=== PATIENT | female | born 1980 | race Caucasian/White ===

== ENCOUNTER 2018-07-07 15:40 | Day surgery (SDC) | payer MEDICAID ==
[~2018-07-07] VITALS: Ht 157.5 cm; Wt 76.2 kg
[2018-07-07] MEDS ORDERED: PRENAVITE1 TAB PO (17:00)
[2018-07-07 17:10] VITALS: BP 108/57; Ht 157.5 cm; Wt 76.2 kg
[2018-07-07 17:14] LABS: HEMOGLOBIN 11.9 g/dL (12-16); MCH 28.7 pg (26.0-34.0); MCHC 33.1 g/dL (31.0-37.0); MEAN PLATELET VOLUME 10.1 fL (7.4-10.4); RBC 4.14 10x6/uL (4.00-5.40); RDW 13.2 % (11.5-14.5); WBC 11.5 10x3/uL (4.8-10.8)
--- NOTE | 2018-07-07 19:28 | NUR ---
1914 FL DIET SERVED
--- NOTE | 2018-07-07 20:30 | NUR ---
2015 DC INSTS GIVEN RX'S GIVEN RELEASED IN WC WITH SPOUSE.
--- NOTE | 2018-07-08 13:19 | OP ---
PATIENT NAME: LOU INIGUEZ MEDICAL RECORD: [id number] :78 LOCATION:D.[facility] ADMISSION DATE: SURGEON: DEBBIE RODRIGUEZ MD DATE OF OPERATION: 07/07/2018 PREOPERATIVE DIAGNOSIS: Suspected ectopic . POSTOPERATIVE DIAGNOSES: 1. Endometriosis. 2. Torsed cyst of Morgagni. 3. Likely missed . PROCEDURES: 1. Diagnostic laparoscopy. 2. Removal of the necrotic cyst of Morgagni. 3. Fulguration of endometriosis of the peritoneum. 4. Dilation with curettage. SURGEON: Debbie Rodriguez MD PARK MANAGER: Shukri Geiger ANESTHESIOLOGIST: Dr. Scott. ANESTHESIA: General. FINDINGS: Pelvis has active endometriosis on the posterior aspect of the uterus in the lower segments. There is powder-burn lesions on the right uterosacral ligament and left sidewall over the ureter. At the time of dilation and curettage scant tissue returned. SPECIMENS: Endometrial curettings likely products of conception. SPECIMEN DISPOSITION: Pathology. ESTIMATED BLOOD LOSS: Minimal. FLUIDS: 1400 cc lactated Ringer's. URINE OUTPUT: Quantity sufficient void prior to the procedure. COMPLICATIONS: None. DRAINS: None. 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 Quantitative hCGs initially had dropped; however, after 3 consecutive draws at 48-hour intervals the levels had plateaued. The patient has had intermittent pain and bleeding. Suspected ectopic was diagnosed. The patient was taken to the operating room for diagnostic laparoscopy and indicated procedures. DESCRIPTION OF PROCEDURE: After informed consent was assured, the patient was taken to the operating room where anesthetic was obtained without difficulty. The patient was prepped and draped in the usual sterile fashion. Attention was OPERATIVE REPORT [id number] LOU INIGUEZ directed to the abdomen where a trocar was inserted. Pneumoperitoneum was developed. Accessory ports were placed in the left lower quadrant and in the midline. Through the midline port, a blunt probe was inserted and anterior and posterior aspects of both tubes and uterus are inspected. The ovaries were also inspected. Powder burn lesions were seen on the posterior aspect of the uterus and on the peritoneum. A necrotic cyst of Morgagni is visualized on the right fimbria and this is removed with Harmonic scalpel from the midline and then passed off the field to the attendant. Now, using monopolar setting at 20 hutchinson, the powder burn lesions that are over the uterus were fulgurated. The left peritoneal powder burn lesion is not addressed. The pneumoperitoneum was now released, trocars were removed and the skin closed. Dermabond was placed over all sites. The legs are positioned for the vaginal portion of this case. The cervix was grasped with a single tooth tenaculum and dilated. What appears to be the products of conceptions returned at the time of the curettage. A good cry was obtained throughout. Sponge, lap, needle counts were correct times 2 as the D&C is completed. All specimens to pathology. The patient tolerated the procedure well. TRANSINT:[id number] Voice Confirmation ID: [id number] DOCUMENT ID: [id number] DEBBIE RODRIGUEZ MD at 1319 CC: [id number] DICTATION DATE: 07/07/181818 INFORMATICS COORDINATOR: 07/08/18 0149 [facility] 07/07/18 [id number] [place] [address]
== END 2018-07-07 20:15 | disposition home or self-care (01) ==
LOC: D.OPS 15:40
PROVIDERS: Anesthesiology
DX: N80.3 Endometriosis of pelvic peritoneum (principal); N80.0 Endometriosis of uterus; N80.8 Other endometriosis; Q50.5 Embryonic cyst of broad ligament; Z01.812 Encounter for preprocedural laboratory examination

== ENCOUNTER → 2019-01-12 16:40 | Outpatient (CLI) | payer MEDICAID ==
[2018-07-07 17:10] VITALS: BMI 30.8
[~2019-01-12 16:40] MED LIST: PRENAVITE1 TAB PO
[2019-01-12 17:59] LABS: APPEARANCE CLEAR (CLEAR); BILIRUBIN NEGATIVE (NEGATIVE); COLOR YELLOW (YELLOW); GLUCOSE NEGATIVE (NEGATIVE); KETONE NEGATIVE (NEGATIVE); NITRITE NEGATIVE (NEGATIVE); PROTEIN NEGATIVE (NEGATIVE); SPECIFIC GRAVITY 1.015 (1.005-1.020); UROBILINOGEN NORMAL (NORMAL)
== END | disposition home or self-care (01) ==
LOC: D.LDO 16:40
PROVIDERS: ATTEND Obstetrics & Gynecology
DX: O26.899 Other specified pregnancy related conditions, unspecified trimester (principal); Z3A.00 Weeks of gestation of pregnancy not specified

== ENCOUNTER → 2019-03-02 13:15 | Outpatient (CLI) | payer MEDICAID ==
[2018-07-07 17:10] VITALS: BMI 30.8
[~2019-03-02 13:15] MED LIST changes: +PEPCID AC20 MG PO; +PERCOCET 5-3251 TAB PO
[2019-03-02 14:23] LABS: APPEARANCE CLEAR (CLEAR); BILIRUBIN NEGATIVE (NEGATIVE); COLOR YELLOW (YELLOW); GLUCOSE 250 mg/dL (NEGATIVE); KETONE SMALL mg/dL (NEGATIVE); NITRITE NEGATIVE (NEGATIVE); PROTEIN NEGATIVE (NEGATIVE); SPECIFIC GRAVITY 1.015 (1.005-1.020); UROBILINOGEN NORMAL (NORMAL)
== END | disposition home or self-care (01) ==
LOC: D.LDO 13:15
PROVIDERS: ATTEND Obstetrics & Gynecology
DX: O26.90 Pregnancy related conditions, unspecified, unspecified trimester (principal); Z3A.00 Weeks of gestation of pregnancy not specified

== ENCOUNTER → 2019-03-31 19:40 | Outpatient (CLI) | payer BC ==
[2018-07-07 17:10] VITALS: BMI 30.8
[2019-03-31 20:02] LABS: APPEARANCE CLEAR (CLEAR); BILIRUBIN NEGATIVE (NEGATIVE); COLOR YELLOW (YELLOW); GLUCOSE 250 mg/dL (NEGATIVE); KETONE NEGATIVE (NEGATIVE); NITRITE NEGATIVE (NEGATIVE); PROTEIN TRACE mg/dL (NEGATIVE); UROBILINOGEN NORMAL (NORMAL)
== END | disposition home or self-care (01) ==
LOC: D.LDO 19:40
PROVIDERS: ATTEND Obstetrics & Gynecology
DX: O26.93 Pregnancy related conditions, unspecified, third trimester (principal); Z3A.35 35 weeks gestation of pregnancy; M54.5 Low back pain; R10.30 Lower abdominal pain, unspecified

== ENCOUNTER 2019-04-20 08:02 | Inpatient (IN) | payer BC, MEDICAID ==
[~2019-04-20] VITALS: Ht 157.5 cm; Wt 91.4 kg
--- NOTE | ~2019-04-20 | OP ---
PATIENT NAME: LOU INIGUEZ MEDICAL RECORD: [id number] :78 LOCATION:[facility] ADMISSION DATE:04/20/19 SURGEON: IRVIN MARCELINO DO DATE OF OPERATION: 04/20/2019 PREOPERATIVE DIAGNOSIS: Previous section, in labor. POSTOPERATIVE DIAGNOSIS: Previous section, in labor. PRIMARY SURGEON: Irvin Marcelino DO DEMURRAGE WORKER SURGEON: Not applicable. ANESTHESIA: RAZ Back CRNA; Diego Echeverria CRNA. PROCEDURE: Repeat low transverse section via Pfannenstiel incision. FINDINGS: Male infant, weight 7 pounds 14.9 ounces, 3600 grams, delivered at 1708 hours. Apgars 9 and 9. Small area, possible focal accreta on the posterior wall of the uterus oversewn with good hemostasis and the uterus with good tone. Normal appearing bilateral fallopian tubes and ovaries. SPECIMENS: Placenta and cord. ESTIMATED BLOOD LOSS: 1000 cc. IV FLUIDS: 2 liters. URINE OUTPUT: 75 cc clear urine. COMPLICATIONS: Possible 1 cm area of focal placenta accreta oversewn with good hemostasis and good uterine tone. PROCEDURE IN DETAIL: The risks, benefits, alternatives and indication of the procedure were discussed with the patient. She voiced understanding of the procedure and signed the consent. She was taken to the OR where spinal anesthesia was administered and found to be adequate. She was placed in the dorsal supine position with leftward tilt. She was prepped and draped in the normal sterile fashion. A Pfannenstiel skin incision was made with a scalpel and carried down to the underlying layer of the fascia with the Bovie. The fascia was incised with the midline and extended laterally. The inferior aspect of the fascial incision was grasped with Isidra clamps and the rectus muscle was dissected off sharply. Attention was then turned to the superior aspect of the fascial incision. The rectus muscle was dissected off in a similar fashion. The rectus muscle was grasped with 2 Allises and down to the level of peritoneum with a scalpel. The peritoneum was identified and noted to be free of adherent bowel and entered bluntly. Intraabdominal adhesions were noted that were taken down with a combination of blunt and sharp dissection. A bladder flap was created and the uterus was incised in a transverse fashion of the lower uterine segment. The incision was extended with cephalad caudad traction. The 's head was brought to the incision and the delivered without difficulty. Mouth and nose were suctioned. Cord was clamped and cut and the was handed off to awaiting pediatricians. The placenta was manually removed. There was a small area of possible focal placenta accreta that was then oversewn with 0 Vicryl with good hemostasis noted at the hysterotomy. A OPERATIVE REPORT [id number] LOU INIGUEZ moist laparotomy sponge was used to assure complete removal of placental membranes. The hysterotomy was then closed with 0 Vicryl in a running locked fashion with good hemostasis noted. The uterus, tubes and ovaries were noted to be normal and returned back to the abdominal cavity. A moist laparotomy sponge was used to assure complete removal of blood clots and fluid from the abdominal cavity. The hysterotomy was reinspected and noted to be hemostatic. The uterus was noted to have good uterine tone when placed back into the abdomen. The rectus muscle was closed with 2-0 Monocryl in a running fashion with good hemostasis. The fascial incision was closed with 0 Vicryl in a running fashion with good hemostasis. The subcutaneous fat was closed with 2-0 plain gut in a running fashion with good hemostasis. The skin was closed in a subcuticular fashion with 3-0 Monocryl and Dermabond covering. All needle, lap, sponge, and instrument counts were correct times 2. The patient tolerated the procedure well and she was taken to the recovery room in stable condition. TRANSINT:[id number] Voice Confirmation ID: [id number] DOCUMENT ID: [id number] IRVIN MARCELINO DO CC: [id number] DICTATION DATE: 04/24/191207 STERILE PROCESSING TECH: 04/24/19 1359 [facility] IN 04/23/19 [id number] [place] [address]
[~2019-04-20 08:02] MED LIST changes: -PEPCID AC20 MG PO; -PERCOCET 5-3251 TAB PO
[2019-04-20] MEDS ORDERED: PEPCID AC20 MG PO (09:33)
[2019-04-20 09:41] LABS: BASOPHILS 0.2 % (0-2); EOSINOPHILS 0.5 % (0-7); HEMOGLOBIN 10.5 g/dL (12-16); IMMATURE GRANULOCYTES 0.2 % (0-5); LYMPHOCYTES 23.6 % (15-50); MCH 29.1 pg (26.0-34.0); MCHC 32.8 g/dL (31.0-37.0); MCV 88.6 fL (80.0-100.0); MEAN PLATELET VOLUME 10.2 fL (7.4-10.4); MONOCYTES 7.3 % (2-11); NEUTROPHILS 68.2 % (40-80); PLATELET COUNT 280 10x3/uL (130-400); RBC 3.61 10x6/uL (4.00-5.40); RDW 13.8 % (11.5-14.5); WBC 10.8 10x3/uL (4.8-10.8)
[2019-04-20 09:43] LABS: ALBUMIN 2.2 g/dL (3.4-5.0); ALKALINE PHOSPHATASE 205 U/L (46-116); ALT (SGPT) 12 U/L (10-68); AMYLASE - SERUM 50 U/L (25-115); BILIRUBIN - TOTAL 0.24 mg/dL (0.2-1.3); CALC OSMOLALITY 274 mosm/kg (275-300); CALCIUM 9.3 mg/dL (8.5-10.1); CHLORIDE - SERUM 105 mmol/L (98-107); CREATININE - SERUM 0.7 mg/dL (0.6-1.3); GLUCOSE 100 mg/dL (74-106); LIPASE 166 U/L (73-393); POTASSIUM - SERUM 3.8 mmol/L (3.5-5.1); PROTEIN - SERUM 6.3 g/dL (6.4-8.2); SODIUM 139 mmol/L (136-145); UREA NITROGEN 3 mg/dL (7-18); eGFR NON AFRICAN AMERICAN > 90 mL/min (90-120)
[2019-04-20 10:02] LABS: APPEARANCE HAZY (CLEAR); BILIRUBIN NEGATIVE (NEGATIVE); COLOR YELLOW (YELLOW); GLUCOSE NEGATIVE (NEGATIVE); KETONE MODERATE mg/dL (NEGATIVE); NITRITE NEGATIVE (NEGATIVE); PROTEIN TRACE mg/dL (NEGATIVE); SPECIFIC GRAVITY 1.025 (1.005-1.020); UROBILINOGEN NORMAL (NORMAL); WHITE CELLS - URINE 0-5 /hpf (NEGATIVE)
[2019-04-20 10:03] LABS: BACTERIA MODERATE /hpf (NEGATIVE); EPITHELIAL CELLS OCC /hpf (0-5); GRANULAR CAST RARE /lpf (NONE SEEN); MUCUS <1+ /lpf (NONE SEEN)
[2019-04-20 11:25] LABS: HIV 1 & 2- RAPID SCREEN NEGATIVE (NEGATIVE)
[2019-04-20 12:26] VITALS: BP 120/61; Ht 157.5 cm; Wt 91.4 kg
--- NOTE | 2019-04-20 17:23 | NUR ---
1708 VIABLE BABY BOY DELIVERED CORD BLOOD AND GASES DONE AND SENT OUT, DORIS
--- NOTE | 2019-04-20 18:50 | NUR ---
THIS RN AND Radha BURNSRN TO RECOVERY ROOM. FUNDAL CHECK DONE. FUNDUS FIRM,U/U MIDLINE. SMALL LOCHIA NOTED. NO BLOOD CLOTS EXPRESSED W/MASSAGE. PT ROLLED FROM SIDE TO SIDE AND CLEAN CHUX AND PADS PLACED. PT TRANSFERED TO RM [id number].
[2019-04-20 18:57] VITALS: BP 111/58
--- NOTE | 2019-04-20 19:00 | NUR ---
REC'D PT BACK FROM RECOVERY POST REPEAT . PT AA&O X4. PAIN ASSESSED. PT REPORTS PAIN 11/25. REPORT REC'D FROM RECOVERY NURSE, PIYUSH BOYER THAT PT RECEIVED MORPHINE AND TORADOL IN RECOVERY. SEE EMAR FOR DOCUMENTATION. PT HAS A PIV TO RT HAND W/NS/20 UNITS PITOCIN INFUSING AT SLOW RATE OFF THE PUMP.
--- NOTE | 2019-04-20 19:05 | NUR ---
PT CONTINUES TO C/O PAIN RATED 7/10 AT THIS TIME, AFTER RECEIVING 4MG MORPHINE IN RECOVERY WELL ALREADY RECEIVING TORADOL. DR MARCELINO ON UNIT, NOTIFIED OF PT PAIN COMPLAINTS AND MEDS RECEIVED. ORDER RECEIVED TO ADMIN ANOTHER 2MG MORPHINE IVP x1 NOW.
[2019-04-20 19:15] LABS: BASOPHILS 0.1 % (0-2); EOSINOPHILS 0.1 % (0-7); HEMATOCRIT 29.2 % (36.0-48.0); HEMOGLOBIN 9.2 g/dL (12-16); IMMATURE GRANULOCYTES 0.6 % (0-5); LYMPHOCYTES 22.2 % (15-50); MCH 28.2 pg (26.0-34.0); MCHC 31.5 g/dL (31.0-37.0); MCV 89.6 fL (80.0-100.0); MONOCYTES 6.6 % (2-11); NEUTROPHILS 70.4 % (40-80); PLATELET COUNT 256 10x3/uL (130-400); RBC 3.26 10x6/uL (4.00-5.40); RDW 13.9 % (11.5-14.5)
--- NOTE | 2019-04-20 19:15 | NUR ---
FUNDUS FIRM,U/U, MIDLINE. SCANT TO SMALL LOCHIA NOTED.
--- NOTE | 2019-04-20 19:30 | NUR ---
PT AA&O X 4. REPORTS PAIN IS 6/10. FUNDUS FIRM,U/U,MIDLINE. SCANT TO SMALL LOCHIA NOTED. [facility] MUG FILLED WITH ICE WATER. SERVED AND PT INSTRUCTED TO INCREASE FLUID INTAKE.
--- NOTE | 2019-04-20 19:30 | NUR ---
FUNDUS FIRM,U/U,MIDLINE. SMALL LOCHIA NOTED. NO PAD CHANGE NEEDED. PT REPORTS PAIN IS STILL 7/10. ICE CAP TO ABD.
[2019-04-20 19:36] VITALS: BP 108/59
--- NOTE | 2019-04-20 19:45 | NUR ---
PT REPORTS PAIN 5/10. FUNDUS FIRM,U/U,MIDLINE. SMALL LOCHIA NOTED. CLEAN PERIPAD PLACED. I.S. PROVIDED W/INSTRUCTIONS. PT PERFORMS I.S. X 3 W/MODERATE ABILITY.
--- NOTE | 2019-04-20 20:00 | NUR ---
PT W/ UP IN ARM. PAIN ASSESED. PT REPORTS PAIN REMAINS 5/10. NO FURTHER INTERVENTIONS REQUESTED AT THIS TIME. FUNDUS FIRM,U/U, SMALL LOCHIA NOTED. APPROX 125ML URINE NOTED AND DUMPED TO BAG. PT T/C/D.
--- NOTE | 2019-04-20 21:00 | NUR ---
PT AA&O X4. PAIN ASSESSED. PT CONTINUES TO RATE PAIN 6-7/10. EMAR REVIEWED. PT INFORMED THAT SHE MAY HAVE NEXT DOSE OF MORPHINE AT 0. PT AGREEABLE TO WAITNING. NO FURTHER PAIN INTERVENTIONS REQUESTED AT THIS TIME. FUNDUS FIRM,U/U, MIDLINE. PT REPOSITIONED SIDE TO SIDE W/MODERATE ASSIST AND CHUX/PAD CHANGED. CLEAN PAD PLACED. APPROX 125ML URINE NOTED IN UROMETER AND DUMPED. SCD WRAPS REMAIN CONNECTED TO PUMP. PUMP REMAINS ON AND FUNCTIONING.
--- NOTE | 2019-04-20 21:30 | NUR ---
THIS RN TO BEDSIDE. 4MG MORPHINE ADMINISTERED SIVP. PT CURRENTLY AA&O X 4. UP IN PT'S ARMS. FAMILY AT BEDSIDE. BED LOW, SIDE RAILS UP X 2.
--- NOTE | 2019-04-20 22:46 | NUR ---
NEW BAG OF PITOCIN UP AT 125 ML/HR. SITE CLEAR AND PATIENT. NO NEEDS VERBALIZED AT THIS TIME. Laurence BELL RN
[2019-04-20 23:17] LABS: BASOPHILS 0.1 % (0-2); EOSINOPHILS 0 % (0-7); HEMATOCRIT 28.6 % (36.0-48.0); HEMOGLOBIN 9.1 g/dL (12-16); IMMATURE GRANULOCYTES 0.5 % (0-5); MCH 28.3 pg (26.0-34.0); MCHC 31.8 g/dL (31.0-37.0); MCV 89.1 fL (80.0-100.0); MEAN PLATELET VOLUME 9.7 fL (7.4-10.4); MONOCYTES 7.6 % (2-11); NEUTROPHILS 78.8 % (40-80); PLATELET COUNT 250 10x3/uL (130-400); RBC 3.21 10x6/uL (4.00-5.40); RDW 13.7 % (11.5-14.5)
[2019-04-20 23:22] LABS: WBC 17.8 10x3/uL (4.8-10.8)
--- NOTE | 2019-04-20 23:30 | NUR ---
ROUNDS MADE FOR I&O,LOCHIA ASSESSMENT AND PAIN. PT AA&O X 4. SMILING AND REPORTS HER PAIN LEVEL WAS A 4/10 UNTIL SHE COUGHS.FUNDAL CHECK DONE. FUNDUS FIRM, DEEP, MIDLINE. SMALL REUBRA LOCHIA NOTED. PERICARE DONE AND CLEAN PAD PLACED. APPROX 350ML URINE NOTED IN UROMETER AND DUMPED. SCD WRAPS REMAIN IN PLACE,CONNECTED TO PUMP. PUMP IS ON AND FUNCTIONING. PT DENIES NEEDS AT THIS TIME.
--- NOTE | 2019-04-20 23:30 | NUR ---
ROUNDS MADE. PT CHEERFUL. FUNDUS FIRM,U/U, MIDLINE, SMALL LOCHIA NOTED. MORPHINE 4MG SIVP GIVEN. SEE EMAR. PT DENIES NEEDS AT THIS TIME. REPOSITIONS SELF UP IN BED.
--- NOTE | 2019-04-21 00:45 | NUR ---
THIS RN TO BEDSIDE TO ADMIN SCHEDULED TORADOL. 30MG GIVEN SIVP. PT CURRENTLY RATES PAIN 5/10. SMALL LOCHIA NOTED. PT PERFORMS I.S. X 3 W/MODERATE EFFORT. COUGHS X 3 W/POOR EFFORT. PT TURNED SIDE TO SIDE W/MINIMAL ASSIST. CHUX/PAD CHANGED. SCANT TO SMALL LOCHIA NOTED. CLEAN PERIPAD PLACED. VITAL SIGNS OBTAINED. MIGUEL UROMETER EMPTIED. SEE I&O FLOWSHEET. SCD WRAPS REMAIN IN PLACE. CONNECTED TO PUMP. PUMP IS ON AND FUNCTIONING. FRESH ICE WATER SERVED. PT DENIES FURTHER NEEDS AT THIS TIME. PLANS TO REST. FOB AWAKE AND HOLDING . BED LOW, SIDE RAILS UP X 2. CALL LIGHT AT PT'S SIDE.
[2019-04-21 00:57] VITALS: BP 105/87
--- NOTE | 2019-04-21 02:52 | NUR ---
ROUNDS MADE. PT LYING IN LOW VELAZQUEZ'S WITH EYES CLOSED. RESP EVEN AND UNLABORED. PT LEFT UNDISTURBED TO ALLOW FOR REST.
--- NOTE | 2019-04-21 04:40 | NUR ---
ROUNDS MADE. PT LYING AWAKE IN BED. OLDER CHILD AT HER SIDE. PAIN ASSESSED. PT RATES PAIN 3-4/10. VITAL SIGNS OBTAINED. SEE FLOWSHEET. APPROX 200ML OF URINE DUMPED FROM UROMETER TO MIGUEL BAG. SCANT LOCHIA NOTED. CLEAN PERIPAD PLACED. PT HAS REPOSITIONED SELF IN BED. PT ENCOURAGED TO USE I.S. PT DOES SO AT THIS TIME. PT ONLY ABLE TO PULL 1500. COUGHS W/POOR EFFORT. PT DENIES NEEDS AT THIS TIME.
[2019-04-21 04:42] VITALS: BP 106/58
--- NOTE | 2019-04-21 04:42 | NUR ---
ROUNDS MADE FOR VITAL SIGNS. PT WAKES WITH THIS RN'S ENTRY TO THE ROOM. PAIN ASSESSED. PT REPORTS PAIN 5/10. PT INFORMED THAT SHE MAY HAVE BOTH MOTRIN AND NORCO AT THIS TIME. PT DECLINES NORCO AT THIS TIME. MOTRIN 600MG PO GIVEN. FRESH ICE WATER AND APPLE JUICE SERVED PER REQUEST. SEE FLOWSHEET FOR VITALS. PT DENIES FURTHER NEEDS AT THIS TIME.
--- NOTE | 2019-04-21 05:15 | NUR ---
PT RINGS CALL LIGHT. THIS RN TO ROOM. PT REQUESTING BE PLACED IN CRIB AT BEDSIDE SO SHE MAY REST. TRANSFERED TO OPEN CRIB. SWADDLED X 2. PT OFFERED PAIN MEDICATION AT THIS TIME. PT DECLINES OFF. DENIES NEEDS.
--- NOTE | 2019-04-21 06:00 | NUR ---
ROUNDS MADE. PT LYING AWAKE IN BED W/FAMILY AT BEDSIDE. PAIN ASSESSED. PT REPORTS PAIN 5/10. TORADOL 30MG SIVP GIVEN. PT TURNS FROM SIDE TO SIDE. CHUX CHANGED. SCANT LOCHIA NOTED TO PAD. CLEAN JOSEF PAD PLACED. APPROX 1100ML EMPTIED FROM MIGUEL BAG. PT REPOSITIONS SELF UP IN BED PREPARING FOR . ADDITIONAL PAIN MEDICATION OFFERED. PT DECLINES. NO FURTHER NEEDS VOICED AT THIS TIME.
[2019-04-21 06:11] LABS: BASOPHILS 0.1 % (0-2); EOSINOPHILS 0.2 % (0-7); HEMATOCRIT 25.6 % (36.0-48.0); HEMOGLOBIN 8.3 g/dL (12-16); IMMATURE GRANULOCYTES 0.4 % (0-5); LYMPHOCYTES 16.6 % (15-50); MCH 28.6 pg (26.0-34.0); MCHC 32.4 g/dL (31.0-37.0); MCV 88.3 fL (80.0-100.0); MEAN PLATELET VOLUME 9.8 fL (7.4-10.4); MONOCYTES 7.4 % (2-11); NEUTROPHILS 75.3 % (40-80); PLATELET COUNT 236 10x3/uL (130-400); RDW 13.8 % (11.5-14.5)
[2019-04-21 06:44] LABS: WBC 13.3 10x3/uL (4.8-10.8)
[2019-04-21 08:00] VITALS: BP 100/55
--- NOTE | 2019-04-21 08:00 | NUR ---
AM ASSESSMENT CHARTED ON FLOWSHEET. FUNDUS FIRM AT U/U WITH LIGHT BLEEDING NOTED TO JOSEF PAD, RATES PAIN AT 2/10 AT THIS TIME. SERVED REGULAR DIET AND WILL CALL WHEN FINISHED SO THAT MIGUEL CATH CAN BE REMOVED.
[2019-04-21 08:11] LABS: HEPATITIS C ANTIBODY <0.1 S/CO RAT (0.0-0.9)
--- NOTE | 2019-04-21 09:15 | NUR ---
ROUNDS MADE, INFANT TO BREAST AT THIS TIME, PT UNDERSTANDS THAT NURSE WILL RETURN TO REMOVE MIGUEL. DENIES NEEDS AND CONTINUE TO RATE PAIN AT 2/10.
--- NOTE | 2019-04-21 10:00 | NUR ---
INFANT TAKEN TO NBN VIA CRIB FOR PEDI ASSESSMENT.
--- NOTE | 2019-04-21 10:30 | NUR ---
PERCOCET 10/325MG GIVEN SCANNED TO EMAR, PT RATES PAIN AT INCISION AT 5/10. MIGUEL CATH REMOVED INTACT WITH 500ML CLEAR URINE NOTED. SHE IS ABLE TO MOVE SELF TO SITTING UP ON SIDE OF BED WITHOUT COMPLAINT OF NAUSEA AND DENIES DIZZINESS. AMB TO BATHROOM WITH LITTLE ASSISTANCE, VOIDS 200ML. ASSIST PER NURSE WITH JOSEF CARE, MESH BRIEFS AND JOSEF PAD ON AND PT TO SINK TO BRUSH HER TEETH AND WASH FACE AND HANDS. UNDERPAD ON BED CHANGED AT THIS TIME. PT ABLE TO GET BACK IN BED AND POSITIONED ON HER BACK WITH ELEVATED HEAD OF BED. INFANT BROUGHT TO ROOM VIA CRIB PER NURSERY NURSE. SIDE RAILS UP X 2 WITH CALL LIGHT IN REACH.
[2019-04-21 12:09] LABS: RUBELLA IGG 8.09 index (Immune >0.99)
--- NOTE | 2019-04-21 12:30 | NUR ---
INFANT TO BREAST AT THIS TIME, PATIENT RATES PAIN AT 4/10, MOTRIN GIVEN PO PER SCHEDULE.
--- NOTE | 2019-04-21 14:23 | NUR ---
PT TURNED TO RIGHT SIDE VISITING WITH FAMILY AT BEDSIDE. RATES PAIN AT 2-3/10 AND UNDERSTANDS THAT PAIN MED IS AVAILABLE. IN CRIB AT BEDSIDE. SIDE RAILS UP X 2, CALL LIGHT IN REACH.
--- NOTE | 2019-04-21 15:30 | NUR ---
PAIN MED GIVEN PER PT REQUEST. RATES PAIN AT 4/10 AT THIS TIME. DENIES ANY OTHER NEEDS AT THIS TIME.
--- NOTE | 2019-04-21 18:21 | NUR ---
MOTRIN GIVEN SCHEDULED, PT RATES PAIN/CRAMPING AT 3/10. SHE IS SITTING UP ON SIDE OF BED VISITING WITH FAMILY/FRIENDS. DENIES ANY OTHER NEEDS AT THIS TIME.
[2019-04-21 19:30] VITALS: BP 102/56
--- NOTE | 2019-04-21 19:30 | NUR ---
ASSESSMENT PER FLOW SHEET, VS OBTAINED, SALINE LOCK IN LEFT HAND INTACT WITH NO REDNESS OR EDEMA, FF, ML, U/1, PT REPORTS LITE BLEEDING WITH A FEW SMALL CLOTS EARLIER TODAY, BIKINI INC WITH DERMABOND CDI WITH NO DRAINAGE NOTED, PT DENIES FLATUS, NO BM AND VOIDING WITH NO DIFFICULTY, PT RATES INC PAIN 08/26, PT INFORMED THAT SHE WILL BE TRANSFERRED TO [facility], PT VERBALIZES UNDERSTANDING, THIS RN ASSISTED FOB AND FAMILY WITH BELONGINGS TO NEW ROOM
--- NOTE | 2019-04-21 20:10 | NUR ---
PT TRANSFERRED VIA AMB TO ROOM 1257, PT TO BR, VOIDED WITH NO DIFFICULTY, ASSISTED PT WITH JOSEF PANTIES AND PAD, PT TO BED, PT ORIENTED TO ROOM, BED IN LOW POSITION, SIDE RAILS X 2, CALL LIGHT IN REACH, FOB AND FAMILY IN ROOM
--- NOTE | 2019-04-21 20:26 | NUR ---
PT INQUIRES ABOUT INFANT, INFORMED HER THAT NSY NURSE STILL NEEDS TO DO HER ASSESSMENT ON , C/O INC PAIN, ADM PERCOCET PER MD ORDERS, SEE EMAR, PT DENIES FURTHER NEEDS
--- NOTE | 2019-04-21 21:00 | NUR ---
KEM BUTLER, RN, NSY NURSE, REPORTS THAT PT INFORMED HER SHE PASSED A FEW LARGE CLOTS, THIS RN TO ROOM, PT AT THIS TIME, PT INST TO USE CALL LIGHT WHEN FINISHED FEEDING INFANT
--- NOTE | 2019-04-21 21:14 | NUR ---
PT AUTOMATIC CASTING MACHINE OPERATOR LIGHT, FF, ML, U/1, LITE BLEEDING NOTED WITH NO CLOTS ON JOSEF PAD AT THIS TIME, PT EDUCATED ON S&S OF POST BLEEDING, PT VERBALIZES UNDERSTANDING, PT INST TO USE [place] HAT FOR THE NEXT COUPLE OF VOIDS SO I COULD SEE THEM, PT STATES "I'M SORRY, I JUST FLUSHED THEM JUST IN CASE SOMEONE ELSE NEEDED TO USE THE BR, I DIDN'T WANT THEM TO SEE THEM", PT RATES PAIN 2/, DENIES FURTHER NEEDS
--- NOTE | 2019-04-21 22:00 | NUR ---
PT HOLDING INFANT, RATES INC PAIN 2/10, DENIES NEEDS, BEDDING PROVIDED TO FOB
[2019-04-22 00:13] VITALS: BP 96/56
--- NOTE | 2019-04-22 00:13 | NUR ---
PT SUPERVISOR DRY CLEANING LIGHT, REQUESTED AND PROVIDED PACIFIER, VS OBTAINED, ADM MOTRIN PER MD ORDERS, SEE EMAR, WITH FRESH H20, PT REPORTS VOIDING WITH NO CLOTS THIS TIME, PT DENIES FURTHER NEEDS, IN OPEN CRIB CART AND FOB ASLEEP ON COUCH
--- NOTE | 2019-04-22 02:45 | NUR ---
UPON ENTERING ROOM, PT IS RESTING WITH EYES CLOSED WITH INFANT TO BREAST, PT AROUSES TO SOFT VERBAL STIMULATION, TO OPEN CRIB CART AND BACK TO NSY PER THIS RN, PT REQUESTS TO GIVE BOTTLE IF NEEDED, PT DENIES NEEDS OR PAIN AT THIS TIME, FOB ASLEEP ON COUCH
[2019-04-22 04:10] VITALS: BP 121/75
--- NOTE | 2019-04-22 04:10 | NUR ---
MYRON QUINTERO RN OBTAINED VS AT THIS TIME, SHE REPORTS PT DENIES PAIN OR NEEDS AT THIS TIME
--- NOTE | 2019-04-22 06:16 | NUR ---
PT TAPE RECORDING MACHINE OPERATOR LIGHT, C/O PAIN, ADM MOTRIN AND NORCO PER MD ORDERS, SEE EMAR, PT DENIES FURTHER NEEDS
--- NOTE | 2019-04-22 07:50 | NUR ---
IN TO SEE PT. PT SITTING UP IN BED WITH BABY IN ARMS FEEDING BABY. S/O AT BEDSIDE. NO COMPLAINTS AT THIS TIME.
[2019-04-22 09:34] LABS: HEMOGLOBIN 8.3 g/dL (12-16); LYMPHOCYTES 25.7 % (15-50); MCH 30.3 pg (26.0-34.0); MCHC 34.6 g/dL (31.0-37.0); MCV 87.6 fL (80.0-100.0); MEAN PLATELET VOLUME 8.6 fL (7.4-10.4); NEUTROPHILS 67.3 % (40-80); PLATELET COUNT 247 10x3/uL (130-400); RBC 2.74 10x6/uL (4.00-5.40); RDW 13.7 % (11.5-14.5)
[2019-04-22 09:42] LABS: WBC 9.1 10x3/uL (4.8-10.8)
--- NOTE | 2019-04-22 09:45 | NUR ---
PT UP TO SHOWER. IV SITE COVERED. INSTRUCTED ON INCISION CARE-WASH WITH WARM WATER AND SOAP, DRY THOROUGHLY. STATES UNDERSTANDING. LINENES CHANGED. BED IN LOW POSITION, SIDE RAILS UP X2.
[2019-04-22 11:00] VITALS: BP 107/66
--- NOTE | 2019-04-22 11:00 | NUR ---
ASSESSMENT COMPLETE. SEE FLOWSHEET. OFFERED PAIN MEDICATION. DECLINED AT THIS TIME. IV FLUSHES EASILY. NO REDNESS, PAIN OR SWELLING NOTED AT SITE.
--- NOTE | 2019-04-22 12:01 | NUR ---
PT LYING SUPINE IN BED. WATCHES TV. MOTRIN 600 MG GIVEN PO ORDERED.
--- NOTE | 2019-04-22 12:04 | NUR ---
PT REQUESTS AND RECEIVES PERCOCET 10/325 PO FOR C/O PAIN. INSTRUCTED ON MED. VERBALIZES UNDERSTANDING.
[2019-04-22 13:45] VITALS: BP 103/61
--- NOTE | 2019-04-22 13:45 | NUR ---
RESTING IN BED WITH BABY IN ARMS. NO COMPLAINTS AT THIS TIME.
--- NOTE | 2019-04-22 14:45 | NUR ---
RESTING IN BED WITH BABY IN ARMS. NO COMPLAINTS OR NEEDS AT THIS TIME.
--- NOTE | 2019-04-22 15:30 | NUR ---
AMBULATING IN HALLWAYS WITH S/O.
--- NOTE | 2019-04-22 16:31 | NUR ---
IN TO SEE PATIENT. FAMILY AND VISITORS AT BEDSIDE. OFFERD PAIN MEDICATION. DECLINED AT THIS TIME.
--- NOTE | 2019-04-22 16:50 | NUR ---
RESTING IN BED. VISITORS AND S/O AT BEDSIDE. REQUESTING PAIN MED.
--- NOTE | 2019-04-22 18:21 | NUR ---
RESTING IN BED. FAMILY AND VISITORS AT BEDSIDE. ENCOURAGED TO AMBULATE AGAIN THIS EVENING.
--- NOTE | 2019-04-22 19:34 | NUR ---
RECEIVED BEDSIDE SHIFT REPORT FROM ARASH CABRERA RN
[2019-04-22 19:45] VITALS: BP 103/48
--- NOTE | 2019-04-22 19:45 | NUR ---
ASSESSMENT PER FLOW SHEET, VS OBTAINED, SALINE LOCK IN LEFT HAND INTACT WITH NO REDNESS OR EDEMA, FF, ML, U/2, PT REPORTS LITE BLEEDING WITH NO CLOTS, BIKINI INC WITH DERMABOND CDI WITH NO DRAINAGE NOTED, PT REPORTS FLATUS, NO BM AND VOIDING WITH NO DIFFICULTY, PT STATES "I JUST STARTED PASSING SOME GAS WHEN I GOT UP TO THE BR", PT RATES INC PAIN 2/10, DENIES NEEDS AT THIS TIME, TO ROOM VIA OPEN CRIB CART PER KHADIJAH PEARCE RN, FOB AND FAMILY IN ROOM
--- NOTE | 2019-04-22 20:30 | NUR ---
PT VISITING WITH FAMILY AND FRIENDS, STATES "WE ARE HAVING [place]LAM RIGHT NOW SINCE WE MISSED IT LAST NIGHT", PT DENIES NEEDS AT THIS TIME
--- NOTE | 2019-04-22 21:30 | NUR ---
PT HOLDING INFANT, REPORTS SHE JUST FINISHED , PT DENIES NEEDS AT THIS TIME
--- NOTE | 2019-04-22 22:41 | NUR ---
PT HOLDING INFANT, RATES INC PAIN AND CRAMPING 2/10, DENIES NEEDS AT THIS TIME, BED IN LOW POSITION, SIDE RAILS X 2, CALL LIGHT IN REACH
--- NOTE | 2019-04-23 00:29 | NUR ---
PT HOLDING INFANT, FOB IN BED WITH PT, PT C/O FIGUEROA AND CRAMPING, ADM MOTRIN AND NORCO PER MD ORDERS, SEE EMAR, PT DENIES FURTHER NEEDS AT THIS TIME
--- NOTE | 2019-04-23 02:30 | NUR ---
PT RESTING WITH EYES CLOSED, RESP QUIET, NO DISTRESS NOTED, LEFT UNDISTURBED AT THIS TIME, FOB ASLEEP IN BED WITH PT, INFANT IN OPEN CRIB CART AT BEDSIDE
[2019-04-23 04:39] VITALS: BP 105/65
--- NOTE | 2019-04-23 04:39 | NUR ---
PT AWAKE, VS OBTAINED, RATES INC PAIN 1-2/, DENIES NEEDS AT THIS TIME, FOB IN BED WITH PT, TO NSY VIA OPEN CRIB CART PER KHADIJAH PEARCE RN
--- NOTE | 2019-04-23 06:44 | NUR ---
PT RESTING WITH EYES CLOSED, AROUSES TO SOFT VERBAL STIMULATION, ADM MOTRIN AND NORCO PER MD ORDERS, SEE EMAR, PT DENIES NEEDS, FOB ASLEEP IN BED WITH PT, OTHER CHILD ASLEEP ON COUCH
[2019-04-23 06:52] LABS: BASOPHILS 0.3 % (0-2); EOSINOPHILS 2.6 % (0-7); HEMATOCRIT 23.8 % (36.0-48.0); HEMOGLOBIN 7.7 g/dL (12-16); IMMATURE GRANULOCYTES 0.5 % (0-5); LYMPHOCYTES 35.5 % (15-50); MCH 28.7 pg (26.0-34.0); MCHC 32.4 g/dL (31.0-37.0); MCV 88.8 fL (80.0-100.0); MONOCYTES 9.1 % (2-11); PLATELET COUNT 286 10x3/uL (130-400); RBC 2.68 10x6/uL (4.00-5.40); WBC 7.6 10x3/uL (4.8-10.8)
--- NOTE | 2019-04-23 07:45 | NUR ---
AM ASSESSMENT COMPLETED CHARTED ON FLOWSHEET, RATES PAIN AT 2/10 AND IS UP WALKING AROUND ROOM, PREPARING TO TAKE A SHOWER. SHE DENIES CLOTS WITH VOIDS AND STATES THAT BLEEDING IS LESS THAN HER PERIODS. SALINE LOCK TO HER LEFT HAND IS PATENT AND REMOVED PER PT REQUEST, CATH NOTED TO BE INTACT. IN NBN AT THIS TIME. FAMILY AT BEDSIDE. PT DENIES NEEDS AT THIS TIME.
--- NOTE | 2019-04-23 08:25 | NUR ---
DR MARCELINO GIVES ORDER TO REPEAT CBC AT 1300 TODAY.
--- NOTE | 2019-04-23 10:08 | NUR ---
PT DENIES NEEDS AT THIS TIME. INFANT IN CRIB AT BEDSIDE AND FAMILY PRESENT
--- NOTE | 2019-04-23 11:45 | NUR ---
DR RYLAND CONTRERAS, PT UNDERSTANDS THAT BLOOD DRAW WILL BE REPEATED AT 1300TODAY AND RESULTS WILL BE CALLED TO DR MARCELINO. IF H/H HAVE NOT DECREASED MAY D/C HOME WITH .
--- NOTE | 2019-04-23 12:30 | NUR ---
MOTRIN GIVEN SCHEDULED. LARGE CUP OF ICE PER REQUEST. INFANT IN CRIB AT BEDSIDE, FAMILY MEMBERS PRESENT.
[2019-04-23 13:31] LABS: BASOPHILS 0.3 % (0-2); EOSINOPHILS 3.3 % (0-7); HEMATOCRIT 25.4 % (36.0-48.0); HEMOGLOBIN 8.2 g/dL (12-16); IMMATURE GRANULOCYTES 0.4 % (0-5); LYMPHOCYTES 31.8 % (15-50); MCH 28.8 pg (26.0-34.0); MCHC 32.3 g/dL (31.0-37.0); MCV 89.1 fL (80.0-100.0); MEAN PLATELET VOLUME 8.9 fL (7.4-10.4); MONOCYTES 5.1 % (2-11); NEUTROPHILS 59.1 % (40-80); PLATELET COUNT 307 10x3/uL (130-400); RBC 2.85 10x6/uL (4.00-5.40); RDW 14.1 % (11.5-14.5); WBC 7.6 10x3/uL (4.8-10.8)
[2019-04-23] MEDS ORDERED: PERCOCET 5-3251 TAB PO (14:23)
--- NOTE | 2019-04-23 16:45 | NUR ---
VERBAL AND WRITTEN D/C INSTRUCTIONS GONE OVER WITH WRITTEN SCRIPT GIVEN TO PT FOR PERCOCET 5/325MG. SHE STATES UNDERSTANDING TO ALL INFO GIVEN AND DENIES ANY QUESTIONS OR CONCERNS. WILL CALL FOR WHEELCHAIR WHEN SECURED AND SHE IS DRESSED.
--- NOTE | 2019-04-23 17:00 | NUR ---
INFANT SECURED IN TO CARRIER AND VERIFIED BY NURSERY. PT TAKEN OUT TO CAR BY WHEELCHAIR. HOME WITH FAMILY.
== END 2019-04-23 17:00 | disposition home or self-care (01) | DRG 788 ==
LOC: D.LDO 08:02 → D.LD 12:50
PROVIDERS: Obstetrics & Gynecology; ADMIT Student in an Organized Health Care Education/Training Program; ATTEND Student in an Organized Health Care Education/Training Program
PROC: 10D00Z1 Extraction of Products of Conception, Low, Open Approach (ICD-10-PCS; principal; 2019-04-20 16:00)
DX: O34.211 Maternal care for low transverse scar from previous cesarean delivery (principal); Z3A.37 37 weeks gestation of pregnancy; Z37.0 Single live birth; O99.824 Streptococcus B carrier state complicating childbirth; O43.213 Placenta accreta, third trimester; O99.62 Diseases of the digestive system complicating childbirth; K66.0 Peritoneal adhesions (postprocedural) (postinfection)

== ENCOUNTER → 2020-07-26 15:06 | Outpatient (CLI) | payer BC ==
[2019-04-20 12:26] VITALS: BMI 36.8
[~2020-07-26 15:06] MED LIST changes: +PEPCID AC20 MG PO; +PERCOCET 5-3251 TAB PO
== END | disposition home or self-care (01) ==
LOC: D.LAB 15:06
PROVIDERS: ATTEND Internal Medicine Gastroenterology
DX: K29.80 Duodenitis without bleeding (principal)

== ENCOUNTER → 2020-08-07 10:29 | Outpatient (CLI) | payer BC ==
[2019-04-20 12:26] VITALS: BMI 36.8
== END | disposition home or self-care (01) ==
LOC: D.US 08:30
PROVIDERS: ATTEND Internal Medicine Gastroenterology
DX: R11.0 Nausea (principal)

== ENCOUNTER → 2020-08-16 11:55 | Outpatient (CLI) | payer BC ==
[2019-04-20 12:26] VITALS: BMI 36.8
== END | disposition home or self-care (01) ==
LOC: D.LAB 11:55
PROVIDERS: ATTEND Internal Medicine Gastroenterology
DX: K52.9 Noninfective gastroenteritis and colitis, unspecified (principal); K92.1 Melena; R10.31 Right lower quadrant pain